=== PATIENT | female | born 1985 | race Two or more races ===

== ENCOUNTER 2019-05-03 11:49 | Emergency (ER) | payer OTHER ==
[~2019-05-03] VITALS: Ht 165.1 cm; Wt 64.0 kg
[~2019-05-03 11:49] MED LIST: METOPROLOL SUCC25 MG PO; YAZ 28 TABLET1 TAB PO
== END 2019-05-03 13:50 | disposition home or self-care (01) ==
LOC: ER 11:49
DX: I16.0 Hypertensive urgency (principal); I10 Essential (primary) hypertension